=== PATIENT | female | born 1965 | race Caucasian/White ===

== ENCOUNTER 2016-11-19 08:25 | Inpatient (IN) ==
[2016-11-19] MEDS ORDERED: SODIUM CHLORIDE 0.9% 1,000 ML IV STA (08:54)
[2016-11-19] MEDS ORDERED: ONDANSETRON 4 MG/2 ML VIAL IV STA (08:54)
[2016-11-19] MEDS ORDERED: MORPHINE 2 MG/1 ML SYRINGE IV STA (08:54)
[2016-11-19] MEDS ORDERED: ONDANSETRON 4 MG/2 ML VIAL ONE (09:07)
[2016-11-19] MEDS ORDERED: MORPHINE 2 MG/1 ML SYRINGE ONE (09:08)
[2016-11-19 09:56] LABS: Apearance,Urine CLOUDY (Clear); Bacteria,Urine Few /HPF (Few); Bilirubin,Urine Negative (Negative); Blood, Urine Moderate mg/dL (Negative); Glucose,Urine (UA) Negative (Negative); Ketones,Urine Negative (Negative); Mucus,Urine Moderate /LPF (Occasional); Nitrite,Urine Negative (Negative); Protein,Urine Negative; RBC,Urine 7 /HPF (0-4); Squamous Epithelial Cell,Urine Occasional /HPF (0-10); Urine Color Yellow (Yellow); Urine Specific Gravity 1.018 (1.001-1.035); Urine Urobilinogen < 2.0 EU/DL (0.2-1.0); WBC,Urine 3 /HPF (0-6)
[2016-11-19 10:02] LABS: Basophils % 0.3 % (0.0-0.8); Eosinophils % 0.2 % (0.00-10.9); Hematocrit 36.8 VOL% (35.7-47.0); Hemoglobin 11.9 GM/DL (12.0-16.0); Immature Granulocytes % 0.3 %; Immature Granulocytes Absolute 0.03 #; Lymphocytes % 20.6 % (21.3-54.2); Mean Corpuscular HGB Conc 32.3 GM/DL (32-36); Mean Corpuscular Hemoglobin 25 PG (27-34); Mean Corpuscular Volume 77.6 FL (87-102); Mean Platelet Volume 9.4 FL (9.6-12.0); Monocytes # 0.4 10*3/uL (0.11-0.8); Monocytes % 4.3 % (1.7-12.7); Neutrophils # 7.4 10*3/uL (1.4-7.4); Neutrophils % 74.3 % (38.7-73.9); Platelet Count 278 T/CUMM (130-400); Red Blood Count 4.74 MC/CUMM (3.8-5.5); Red Cell Distribution Width 16.1 % (9.3-17.3); White Blood Count 9.9 T/CUMM (4-12)
[2016-11-19 10:38] LABS: Albumin 3.6 G/DL (3.4-5.0); Bilirubin,Total 0.4 MG/DL (0.2-1.0); Calcium 9.1 MG/DL (8.5-10.1); Osmolality,Calculated 277.4 MOS/KG (273-304); Total Protein 7.5 G/DL (6.4-8.3)
--- NOTE | 2016-11-19 10:57 | Ultrasound Report ---
US gallbladder Indication: Right upper quadrant abdominal pain. Comparison: Prior ultrasound dated July 19, 2007 no other recent cross-sectional imaging is available for comparison.. Technique: Multiple longitudinal and transverse real-time sonographic images of the right upper quadrant of the abdomen are obtained. Findings: The liver measures 16.2 cm and demonstrates normal echogenicity without focal abnormality. Multiple focal hypoechoic lesions with no significant posterior enhancement or shadowing are visualized within the liver. The largest is in the left lobe measuring 1 x 0.9 x 1.1 cm. 2 additional lesions in the right lobe inferiorly measure up to 1 cm. These are indeterminate but concerning for neoplastic lesions. Color Doppler does not demonstrate significant internal blood flow within these lesions which are otherwise indeterminate. These were not definitely visualized on the 2008 study. Multiple mobile gallstones are noted within the gallbladder lumen. There is no pericholecystic fluid. There is no wall thickening. The sonographic Schuler's sign is negative. The common duct measures 0.4 cm cm in diameter and there is no evidence of intrahepatic ductal dilation. Right kidney measures 11.5 cm craniocaudal and appears normal. The visualized portion the pancreas is unremarkable. There is no ascites. IMPRESSION: No acute sonographic abnormality right upper quadrant. Cholelithiasis with no CT evidence of acute cholecystitis. At least 3 separate new hypoechoic lesions in the liver, which are indeterminant measuring up to 1.1 cm maximum size in the left lobe. These were not definitely visualized on the 2008 ultrasound. Neoplastic versus metastatic lesions cannot be excluded. Possible benign lesion such as hemangiomas remain considerations are favored to be less likely. CT imaging of the abdomen with contrast and three-phase liver mass protocol would be recommended for further evaluation. Ultrasound images were captured and stored. PROCEDURE INTERPRETED AT [facility] DEPARTMENT OF RADIOLOGY Final Report Signed by: Demond Morataya
[2016-11-19] MEDS ORDERED: ACETAMINOPHEN 325 MG TABLET PO PRN (11:05)
[2016-11-19] MEDS ORDERED: MORPHINE 2 MG/1 ML SYRINGE IV PRN ×2 (11:05→14:06)
--- NOTE | 2016-11-19 11:43 | Emergency Department Note ---
Kimber De La Rosa Brittany, am scribing for, and in the presence of, Sera Archuleta MD 09:12. Kathe De La Rosa Leanne, MD, personally performed the services described in this documentation, ascribed by Neli Quiroga in my presence, and it is both accurate and complete . Arrival - Arrival Chief Complaint: Abdominal / Flank Pain Stated Complaint: abdominal pain,nausea pain in R shoulder back/arm ED Nursing Triage Note: c/o states having upper right quad abd.pain., states had a HIDA scan done on thrusday., states had an ultrasound of the gallbladder and was told that had gallstones., + nausea., + chills., Mode of Arrival: Ambulatory Limitations: No Limitations Source: Patient Time Seen by Provider: 11/19/16 08:45 - History of Present Illness HPI Narrative: This is a 51 y/o white female,who presents to the ED for further evaluation of her gallbladder. She states the Sx all started 6 months ago. She reports she noticed abdomen distention, nausea and vomiting when the Sx started. She has been to her PCP and Dr. Benavides, her GI specialist. She reports the last she has been told she has a 4MM gallstone in the gallbladder. She reports last week she had a HIDA Scan, per Dr. Benavides. She started to have nausea and right upper quadrant pain this morning. Pt has no other complaints/pain in the ED at this time. Pt has a PMHx of tachycardia. Pt denies a surgical Hx. Pt denies a family medical Hx. Pt denies a social Hx. Onset (ago): month(s) (Started 6 months ago) Consistency: intermittent Severity: moderate Date of Last Menstrual Period: hyst Allergies/Adverse Reactions: Allergies Allergy/AdvReac Type Severity Reaction Status Date / Time Amoxicillin [From Augmentin] Allergy HIVES Verified 11/19/16 08:34 ciprofloxacin [From Cipro] Allergy HIVES Verified 11/19/16 08:34 clavulanic acid Allergy HIVES Verified 11/19/16 08:34 [From Augmentin] codeine Allergy HIVES Verified 11/19/16 08:34 Erythromycin Base Allergy HIVES Verified 11/19/16 08:34 Hydromorphone [From Dilaudid] Allergy HIVES Verified 11/19/16 08:34 meperidine [From Demerol] Allergy HIVES Verified 11/19/16 08:34 Sulfa (Sulfonamide Allergy HIVES Verified 11/19/16 08:34 Antibiotics) Review of System - Review of System 12 point system: reviewed and no additional remarkable complaints except as stated - Review of System Gastrointestinal: Present: abdominal pain (Right Upper Quadrant Pain ), nausea, vomiting Medical,Surgical,& Family Hx - Medical History Cardio: History of: Cardiac Dysrhythmia - Social History Smoking Status: Never smoker Frequency of Alcohol Use: None Type of Drug Use: None Exam Vital Signs: Vital Signs Temperature 98.3 F 11/19/16 08:31 Pulse Rate 64 11/19/16 11:13 Respiratory Rate 16 11/19/16 11:13 Blood Pressure 131/77 11/19/16 11:13 O2 Sat by Pulse Oximetry 96 11/19/16 11:13 - General General appearance: alert, in no apparent distress - Head Head exam: Present: atraumatic, normocephalic, normal inspection - Eye Eye exam: Present: normal appearance, PERRL, EOMI. Absent: nystagmus, miosis, mydriasis - ENT ENT exam: Present: normal exam, normal oropharynx, mucous membranes moist, TM's normal bilaterally, normal external ear exam - Neck Neck exam: Present: normal inspection, full ROM, trachea midline. Absent: tenderness, meningismus, lymphadenopathy, thyromegaly - Chest Chest inspection: Present: normal inspection, symmetric chest wall rise. Absent : tenderness, rash, abscess - Respiratory Respiratory exam: Present: normal lung sounds bilaterally. Absent: prolonged expiratory phase, rales, respiratory distress, rhonchi, stridor, wheezes - Cardiovascular Cardiovascular exam: Present: regular rate, normal rhythm, normal heart sounds. Absent: murmur, rubs, gallop, clicks, JVD - Abdominal Exam Abdominal exam: Present: soft, tenderness (RUQ Tenderness, RUQ PPT), normal bowel sounds. Absent: distention, guarding, rebound, rigidity - Rectal Exam Rectal exam: Present: deferred - Extremities Exam Extremities exam: Present: normal inspection, full ROM, normal capillary refill. Absent: tenderness, pedal edema, joint swelling, calf tenderness - Back Exam Back exam: Present: normal inspection, full ROM. Absent: tenderness, muscle spasm, rashes - Neurological Exam Neurological exam: Present: alert, oriented X3, CN II-XII intact. Absent: motor sensory deficit - Psychiatric Psychiatric exam: Present: normal affect, normal mood. Absent: depressed, agitated, anxious, manic - Skin Skin exam: Present: warm, dry, intact, normal color. Absent: rash, cyanosis, diaphoresis, erythema, pallor, mottled Course Course Narrative: Pt with gallbladder work up with known stones. Doesnt see xin until November 27. Spoke iwth Dr. Su, he will admit for abx and pain control and have dr. lauren see her in am. Results - Labs CBC & BMP: 11/19/16 09:44 11/19/16 09:44 Lab Results: I have reviewed the patients labs Labs: Laboratory Tests 11/19/16 11/19/16 11/19/16 09:44 09:44 09:44 WBC 9.9 RBC 4.74 Hgb 11.9 L Hct 36.8 MCV 77.6 L MCH 25 L MCHC 32.3 RDW 16.1 Plt Count 278 MPV 9.4 L Neut % (Auto) 74.3 H Lymph % (Auto) 20.6 L [place] % (Auto) 4.3 Eos % (Auto) 0.2 Baso % (Auto) 0.3 Neut # (Auto) 7.4 Lymph # (Auto) 2.0 [place] # (Auto) 0.4 Eos # (Auto) 0.0 Baso # (Auto) 0.0 Immature Gran % 0.3 Nucleated RBC % 0.0 Immature Gran # 0.03 Nucleated RBCs # 0.00 Sodium 140 Potassium 4.0 Chloride 106 Carbon Dioxide 25 Anion Gap 13.0 BUN 9 Creatinine 0.70 GFR Calculation 108 BUN/Creatinine Ratio 12.00 Glucose 102 Calculated Osmolality 277.4 Calcium 9.1 Total Bilirubin 0.40 AST 23 ALT 27 Alkaline Phosphatase 83 Total Protein 7.5 Albumin 3.6 Globulin 3.9 H Albumin/Globulin Ratio 0.9 L Lipase 233.0 Urine Color Yellow Urine Appearance Cloudy Urine pH 5.0 Ur Specific [place] 1.018 Urine Protein Negative Urine Glucose (UA) Negative Urine Ketones Negative Urine Blood Moderate Urine Nitrate Negative Urine Bilirubin Negative Urine Urobilinogen < 2.0 H Urine Leukocytes Trace Urine RBC 7 Urine WBC 3 Ur Squamous Epith Cells Occasional Urine Bacteria Few Urine Mucus Moderate Ur Culture Indicated? Not indicated - Diagnostic Findings Procedure: X-ray: report reviewed by me (Gallbladder X-ray: No acute sonographic abnormality right upper quadrant. Cholelithiasis) Disposition Clinical Impression: Abdominal pain Case discussed with: patient Condition: Stable Additional Instructions: admit to surgery
--- NOTE | 2016-11-19 12:27 | CT Report ---
CT chest abdomen w con Technique: Axial CT imaging of the chest and abdomen was performed following administration of 100 cc of Omnipaque 350. No immediate complication from administration of contrast. Coronal and sagittal reformatted images were additionally created and submitted for review. Dose reduction: This CT exam was performed using one or more of the following dose reduction techniques: Automated exposure control, automated adjustment of the mA and/or KV according to patient size, or use of iterative reconstruction technique. Total DLP: 826 mGy*cm Clinical history: Suspicious lesions within the liver on prior ultrasound Comparison: Liver ultrasound dated 11/19/2016 Findings: CHEST: Mediastinum/vessels/lymph nodes: Heart and great vessels appear unremarkable. There is no evidence of pericardial effusion. The aorta and pulmonary vessels appear widely patent. There is no adenopathy in the chest. Lungs: The lungs are predominantly clear. There is no pneumothorax or pleural effusion. There is no focal consolidation. No suspicious pulmonary nodules or masses are identified. Central airways are patent. Minimal posterior basilar atelectasis is noted. Thyroid: Thyroid gland appears within normal limits. ABDOMEN: Liver/gallbladder: No abnormal enhancing lesions. Surprisingly, the clearly visualized lesion seen on prior ultrasound are isodense with no enhancement or washout on the supplied images. Therefore, these may represent atypical appearance of hemangiomas. There is no biliary ductal dilatation. No gallstones are visualized. Portal vein is patent. Spleen/pancreas: Within normal limits. Adrenals: Within normal limits. Kidneys: No evidence of hydronephrosis. Delayed images demonstrate symmetric excretion of contrast from both kidneys. 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 Bowel/mesentery: No free fluid/air within the abdomen. Small bowel is nondilated. No mesenteric adenopathy. Colon appears unremarkable with minimal scattered diverticulosis noted. Retroperitoneum: No adenopathy. No evidence of aortic aneurysm. BONES: No acute or suspicious appearing osseous abnormalities are identified. Impression: 1. No acute abnormality in the chest or abdomen. 2. The questioned hepatic lesions on prior ultrasound are not visualized on this study - suggesting nonenhancing isodense lesions without washout. The lesions seen on prior ultrasound may represent atypical appearance of hemangiomas. A follow-up liver ultrasound in 3-4 months months can be obtained to document stability. 3. Diverticulosis with no CT evidence of acute diverticulitis. PROCEDURE INTERPRETED AT [facility] DEPARTMENT OF RADIOLOGY Final Report Signed by: Demond Morataya
[2016-11-19] MEDS: ONDANSETRON 4 MG/2 ML VIAL IV PRN ×2 (13:45→21:44)
--- NOTE | 2016-11-19 14:02 | General Surg History&Physical ---
Assessment and Plan - Time spent with patient Time spent with patient: Greater than 30 minutes (1) Abdominal pain Status: Acute Assessment and plan: Impression: Abdominal pain with radiation to the back epigastric right upper quadrant 2. Cholelithiasis with abnormal HIDA scan Plan: Just clear liquids at this time some IV fluids and keep her n.p.o. after midnight. Consider laparoscopic cholecystectomy tomorrow. Current Visit: Yes Qualifiers: Abdominal location: epigastric Qualified Code(s): R10.13 - Epigastric pain History of Present Illness Chief complaint: Abdominal pain right upper quadrant with radiation to the back History of present illness: Ms. Hines is a 51 year old female white who has been having some abdominal pain with nausea for the last 6 months. Over the last 6 weeks though he did begin to get a little bit worse that she begin to seek some help. She had an ultrasound that showed that she had gallstones present and then was planned to just do some observation but she continued to have symptoms. Unable to really relate this to certain foods but she was having recurrent attacks with nausea and discomfort. She was referred over to Dr. Benavides who ended up doing a HIDA scan that was positive with a 0% ejection fraction. The ejection fraction part of the HIDA scan was reproducing some of her symptoms at the time. At this point she had another episode yesterday and got pretty bad with more discomfort into her back and into her shoulder area with the right upper quadrant discomfort. Came back to the emergency room today liver function studies are normal and on review of her ultrasound which showed some stones and a CT scan of the abdomen and pelvis it was pretty much negative at this time. There was a little concerned on the ultrasound about some changes in the liver but these were negative on the CT scan at this time. Because her symptoms seem to be getting worse and seem to be consistent with gallbladder disease certainly planning a cholecystectomy would be important. Patient was scheduled to see Dr. Encinas so will let him know about her in the morning see what he wants to do at this time. Home Medications Medication Instructions Recorded Confirmed Type Aspirin EC Tab 325 mg PO BEDTIME 11/19/16 11/19/16 History Betahistine HCl 8 gm PO 0600,1400,2200 11/19/16 11/19/16 History Estrogens(Conj) Tab [Premarin Tab] 0.625 mg PO BEDTIME 11/19/16 11/19/16 History Nebivolol HCl [Bystolic] 2.5 mg PO BEDTIME 11/19/16 11/19/16 History Omeprazole 40 mg PO QAM 11/19/16 11/19/16 History Allergies Allergy/AdvReac Type Severity Reaction Status Date / Time Amoxicillin [From Augmentin] Allergy HIVES Verified 11/19/16 08:34 ciprofloxacin [From Cipro] Allergy HIVES Verified 11/19/16 08:34 clavulanic acid Allergy HIVES Verified 11/19/16 08:34 [From Augmentin] codeine Allergy HIVES Verified 11/19/16 08:34 Erythromycin Base Allergy HIVES Verified 11/19/16 08:34 Hydromorphone [From Dilaudid] Allergy HIVES Verified 11/19/16 08:34 meperidine [From Demerol] Allergy HIVES Verified 11/19/16 08:34 Sulfa (Sulfonamide Allergy HIVES Verified 11/19/16 08:34 Antibiotics) Medical,Surgical,& Family Hx - Medical History Cardio: History of: Cardiac Dysrhythmia - Social History Smoking Status: Never smoker Frequency of Alcohol Use: None Type of Drug Use: None Exam - Constitutional Vitals: Period Temp Pulse Resp BP Sys/[place] Pulse Ox Last 24 Hr 98.0 F-98.3 F 61-88 16-18 114-168/62-103 96-100 General appearance: mild distress - Head Head exam: Present: normal inspection - Eye Eye exam: Present: EOMI - ENT ENT exam: Present: normal exam - Neck Neck exam: Present: normal inspection - Respiratory Respiratory exam: Present: clear to auscultation bilaterally, rales - Cardiovascular Cardiovascular exam: Present: RRR - GI/Abdominal GI/Abdominal exam: Present: hypoactive bowel sounds, tenderness (Mild tenderness with minimal guarding right upper quadrant), soft. Absent: distended - Extremities Exam Extremities exam: Present: normal inspection - Neurological Exam Neurological exam: Present: alert, oriented X3, CN II-XII intact - Skin Skin exam: Present: normal color, warm, dry 12 point system: reviewed and no additional remarkable complaints except as stated Results - Labs CBC & BMP: 11/19/16 09:44 11/19/16 09:44 Lab Results: I have reviewed the past 24 hour labs - Diagnostic Findings Procedure: CT Abdomen and Pelvis: report reviewed by me (Essentially negative even for the liver but no other process noted in the pelvis), Ultrasound: report reviewed by me (Positive for stones in the gallbladder), X-ray: report reviewed by me (HIDA scan with a 0% ejection fraction)
[2016-11-19] MEDS ORDERED: BISACODYL 5 MG TABLET PO PRN (14:06)
[2016-11-19] MEDS ORDERED: ALUMINUM/MAGNES/SIMETH MAX STR 30 ML UDCUP PO PRN (14:06)
--- NOTE | 2016-11-19 14:41 | EKG Report ---
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
--- NOTE | 2016-11-19 16:10 | XRay Report ---
Exam: XR chest 2V Indication: Abdominal pain, possible gallbladder surgery, preop Comparison study: None Findings: The heart, mediastinum, and bony structures are within normal limits. There is no focal consolidation, pneumothorax or pleural effusion identified. Impression: No acute cardiopulmonary process. PROCEDURE INTERPRETED AT [facility] DEPARTMENT OF RADIOLOGY Final Report Signed by: Demond Morataya
[2016-11-19] MEDS: DEXTROSE 5% NACL 0.45% 1,000 ML IV SCH ×2 (16:41→21:17)
[2016-11-19] MEDS: DOCUSATE SODIUM 100 MG CAPSULE PO SCH (21:16)
[2016-11-19] MEDS: NEBIVOLOL 5 MG TABLET PO SCH (21:16)
[2016-11-19] MEDS ORDERED: BETAHISTINE HCL PO SCH (22:00)
[2016-11-20] MEDS: DEXTROSE 5% NACL 0.45% 1,000 ML IV SCH ×3 (05:06→19:40)
[2016-11-20 06:11] LABS: Basophils % 0.6 % (0.0-0.8); Eosinophils # 0.2 10*3/uL (0.0-0.87); Eosinophils % 3.1 % (0.00-10.9); Hematocrit 32.8 VOL% (35.7-47.0); Hemoglobin 10.2 GM/DL (12.0-16.0); Immature Granulocytes % 0.3 %; Immature Granulocytes Absolute 0.02 #; Lymphocytes # 3.5 10*3/uL (1.4-4.0); Mean Corpuscular HGB Conc 31.1 GM/DL (32-36); Mean Corpuscular Hemoglobin 25 PG (27-34); Mean Corpuscular Volume 79.6 FL (87-102); Mean Platelet Volume 9.6 FL (9.6-12.0); Monocytes # 0.5 10*3/uL (0.11-0.8); Neutrophils # 2.6 10*3/uL (1.4-7.4); Platelet Count 223 T/CUMM (130-400); Red Blood Count 4.12 MC/CUMM (3.8-5.5); Red Cell Distribution Width 16.2 % (9.3-17.3); White Blood Count 6.9 T/CUMM (4-12)
[2016-11-20 06:41] LABS: Albumin 2.8 G/DL (3.4-5.0); Bilirubin,Total 0.4 MG/DL (0.2-1.0); Calcium 8.1 MG/DL (8.5-10.1); Osmolality,Calculated 281.8 MOS/KG (273-304); Potassium 4.3 MMOL/L (3.5-5.1)
[2016-11-20 06:49] LABS: Atypical Lymphocytes 2+; Eosinophils 5 % (0-10); Hypochromasia Slight; Lymphocytes 44 % (20-55); Platelet Estimate Adequate; Segmented Neutrophils 48 % (50-85); Total Cells Counted 100
--- NOTE | 2016-11-20 07:30 | General Surgery Progress Note ---
Assessment and Plan - Time spent with patient Time spent with patient: Less than 30 minutes (1) Acute cholecystitis due to biliary calculus Status: Acute Assessment and plan: She continues to have pain consistent with acute cholecystitis. She has had multiple episodes in the past and was actually scheduled to see me in the clinic next week. I discussed laparoscopic cholecystectomy in detail along with the risks and alternatives. We discussed the risk of conversion to open procedure, injury to bile duct, bile leaks, injury to liver or bowel, etc. she understands and wishes to proceed Current Visit: Yes Subjective Patient reports: Present: feels better, still having pain. Absent: nausea, vomiting, fever Exam - Constitutional Vitals: Period Temp Pulse Resp BP Sys/[place] Pulse Ox Last 24 Hr 9.7 F-98.3 F 53-88 16-18 99-168/58-103 96-100 General appearance: no acute distress - Head Head exam: Present: normocephalic - Eye Eye exam: Absent: scleral icterus - Respiratory Respiratory exam: Absent: accessory muscle use - GI/Abdominal GI/Abdominal exam: Present: tenderness, soft. Absent: distended, mass, Schuler' s sign, rebound Results - Labs CBC & BMP: 11/20/16 05:28 11/20/16 05:28 Lab Results: I have reviewed the past 24 hour labs - Diagnostic Findings Procedure: CT Abdomen and Pelvis: report reviewed by me, Ultrasound: report reviewed by me Quality Measures - VTE Contraindication to Pharmacological VTE Prophylaxis: High Risk of Bleeding
[2016-11-20] MEDS: DOCUSATE SODIUM 100 MG CAPSULE PO SCH ×2 (08:01→20:20)
[2016-11-20] MEDS: PANTOPRAZOLE 40 MG TABLET PO SCH (08:01)
[2016-11-20] MEDS ORDERED: SCOPOLAMINE 1.5 MG PATCH TRANSDERM ONE ×2 (12:49→13:07)
[2016-11-20] MEDS ORDERED: DESFLURANE 1 UNIT/15 MINUTE INH ONE ×2 (13:25→15:16)
[2016-11-20] MEDS ORDERED: BUPIVACAINE MPF 0.25% /EPI 30 ML VIAL ONE (13:37)
[2016-11-20] MEDS ORDERED: TISSUE ADHESIVE 1 EACH APPLICATOR TOP ONE (14:47)
--- NOTE | 2016-11-20 14:52 | Operative Note ---
Date of procedure: 11/20/16 Pre-op diagnosis: Cholelithiasis with acute cholecystitis Post-op diagnosis: same Procedure: Laparoscopic cholecystectomy Findings and technique: After informed consent was obtained the patient was brought the operating room and placed in supine position. After successful induction of general anesthesia the patient's abdomen was prepped and draped in usual sterile fashion. Local anesthesia was infiltrated the umbilicus and a small incision made through her old infraumbilical scar and an open technique used in the peritoneal cavity under direct vision. The camera was inserted and pneumoperitoneum was established. The right upper quadrant was visualized with patient was noted to have a thickened diseased appearing gallbladder with adhesions between the omentum and the body of the gallbladder. Ports were placed in the upper abdomen under camera vision in the fundus the gallbladder grasped and retracted upwards. These adhesions were sharply divided exposing the neck of the gallbladder. Peritoneum over the neck of the gallbladder was incised exposing the tapering neck of the gallbladder as it formed the proximal cystic duct and cystic artery as it branched over the medial neck of the gallbladder. The critical view of safety was achieved prior to incising any structures. I used the pinpoint camera system and the patient had had indocyanine green injected preoperatively. This showed the course of the common bile duct in the hepatoduodenal ligament this patient who appeared to have normal anatomy and normal liver function test preoperatively. The cystic duct was doubly clipped and divided close to the neck of the gallbladder and the cystic artery doubly clipped and divided right on the gallbladder neck as well. Sharp dissection was used to remove the gallbladder from the liver bed and the gallbladder removed through the umbilical port site. The liver bed was irrigated inspected and after being observed for about 5 minutes no bleeding or bile leakage was noted. The ports removed and no bleeding noted from the port sites. The gas was evacuated from the abdomen and the fascial defect of the umbilicus closed with running 0 Monocryl suture. The skin incisions were closed with 4-0 Vicryl subcuticular suture and tissue adhesive. She appeared to tolerate the procedure well. Anesthesia: JOANNAA, local Surgeon / Physician: Francisco Encinas III. Estimated blood loss: minimal Specimens: other (Gallbladder) Condition: stable Disposition: PACU Results - Labs CBC & BMP: 11/20/16 05:28 11/20/16 05:28 Discharge Plan - Discharge Medications No Action Omeprazole 40 mg PO QAM Estrogens(Conj) Tab [Premarin Tab] 0.625 mg PO BEDTIME Aspirin EC Tab 325 mg PO BEDTIME Betahistine HCl 8 gm PO 0600,1400,2200 Nebivolol HCl [Bystolic] 2.5 mg PO BEDTIME - Follow Up or Referral Follow Up: Francisco Encinas III., MD [Physician] - - Forms/Instructions Instructions: Laparoscopic Cholecystectomy (DC)
--- NOTE | 2016-11-20 15:11 | Anesthesia Post-Op ---
Anesthesia Post OP - Post Ansesthetic Evaluation Patient seen in post op: Yes Resp: within normal limits CV: within normal limits Mental: within normal limits Temp: within normal limits [id number]: within normal limits Nausea and Vomiting: within normal limits Pain: within normal limits
[2016-11-20] MEDS ORDERED: ACETAMINOPHEN 1,000 MG/100 ML VIAL IV ONE (15:16)
[2016-11-20] MEDS ORDERED: MIDAZOLAM 2 MG/2 ML VIAL ONE (15:16)
[2016-11-20] MEDS ORDERED: fentaNYL 100 MCG/2 ML VIAL ONE (15:16)
[2016-11-20] MEDS ORDERED: MORPHINE 10 MG/1 ML VIAL ONE (15:31)
[2016-11-20] MEDS: ONDANSETRON 4 MG/2 ML VIAL IV PRN (18:42)
[2016-11-20] MEDS: NEBIVOLOL 5 MG TABLET PO SCH (20:21)
[2016-11-20] MEDS: [UNRECOGNIZED DRUG - OTHER] PO SCH (22:22)
[2016-11-21] MEDS: DEXTROSE 5% NACL 0.45% 1,000 ML IV SCH ×2 (02:10→03:22)
[2016-11-21 06:02] LABS: Basophils % 0.2 % (0.0-0.8); Hematocrit 34.8 VOL% (35.7-47.0); Hemoglobin 10.9 GM/DL (12.0-16.0); Immature Granulocytes % 0.4 %; Immature Granulocytes Absolute 0.04 #; Lymphocytes # 1.4 10*3/uL (1.4-4.0); Lymphocytes % 13.7 % (21.3-54.2); Mean Corpuscular HGB Conc 31.3 GM/DL (32-36); Mean Corpuscular Hemoglobin 25 PG (27-34); Mean Corpuscular Volume 78.9 FL (87-102); Mean Platelet Volume 9.8 FL (9.6-12.0); Monocytes # 0.5 10*3/uL (0.11-0.8); Monocytes % 5.2 % (1.7-12.7); Neutrophils % 80.5 % (38.7-73.9); Platelet Count 260 T/CUMM (130-400); Red Blood Count 4.41 MC/CUMM (3.8-5.5); Red Cell Distribution Width 16.1 % (9.3-17.3)
[2016-11-21] MEDS: [UNRECOGNIZED DRUG - OTHER] PO SCH (06:27)
[2016-11-21 06:30] LABS: Calcium 8.8 MG/DL (8.5-10.1); Osmolality,Calculated 280.1 MOS/KG (273-304); Potassium 4.2 MMOL/L (3.5-5.1)
--- NOTE | 2016-11-21 07:13 | Event Note ---
She feels much better. Her abdomen is benign and she is afebrile with stable vital signs. Think she should be fine for discharge today with plans to keep her appointment that is already scheduled with me for next week.
[2016-11-21] MEDS: DOCUSATE SODIUM 100 MG CAPSULE PO SCH (08:46)
[2016-11-21] MEDS: PANTOPRAZOLE 40 MG TABLET PO SCH (08:46)
[2016-11-21] MEDS: ONDANSETRON 4 MG/2 ML VIAL IV PRN (08:52)
--- NOTE | 2016-11-21 11:26 | Discharge Summary ---
Hospital Course - Hospital Course Hospital Course: Patient is a 51-year-old female who underwent subsequent cholecystectomy for acute cholecystitis with cholelithiasis. Postoperatively, she regressed well and tolerated oral intake with adequate pain management without difficulty. She was voiding without difficulty and passing flatus upon discharge. She was discharged home in good condition with appropriate analgesics and scheduled follow-up with Dr. Encinas. Gallbladder pathology pending. Diagnosis - Discharge Diagnosis (1) Acute cholecystitis due to biliary calculus Status: Acute (2) Acute renal injury Status: Resolved (3) Diverticulosis Status: Chronic (4) Liver lesion Status: Acute Specialty Discharge - Follow Up or Referrals Follow up with: Francisco Encinas III., MD [Physician] - 11/27/16 9:45 am (keep previously schecduled appointment) Discharge Plan - Discharge Data Disposition: Disch To Home/Self Care Condition at Discharge: Stable Discharge Diet: advance to your usual diet Activity: no lifting (> 10 lb) Driving: other (No driving while taking narcotics) Contact your physician if you experience:: fever over 101, Difficulty voiding, Redness or swelling, Nausea/Vomiting, Shortness of breath, Bleeding, pain uncontrolled by pain medications Wound / Dressing Care Instructions: Keep surgical incisions clean and dry. - Discharge Medications New Ondansetron Tab [Zofran Tab] 4 mg PO Q6H PRN #20 tablet PRN Reason: Nausea HYDROcodone/ACETAMIN 7.5-325 [[place] 7.5-325] 1 tablet PO Q4H PRN #30 tablet PRN Reason: Pain Moderate To Severe (4-10) Continue Omeprazole 40 mg PO QAM Estrogens(Conj) Tab [Premarin Tab] 0.625 mg PO BEDTIME Aspirin EC Tab 325 mg PO BEDTIME Nebivolol HCl [Bystolic] 2.5 mg PO BEDTIME Betahistine Dihydrochloride 8 mg PO 0600,1400,2200 - Follow Up or Referral Follow Up: Francisco Encinas III., MD [Physician] - 11/27/16 9:45 am (keep previously schecduled appointment) - Forms/Instructions Instructions: Laparoscopic Cholecystectomy (DC) Additional Discharge Instructions: Repeat liver US 3 mo re: liver lesions - suspect hemangiomas Exam - Constitutional Vitals: Period Temp Pulse Resp BP Sys/[place] Pulse Ox Last 24 Hr 97.1 F-98.7 F 50-98 14-20 97-163/46-83 93-100 General appearance: no acute distress - Head Head exam: Present: normal inspection, normocephalic - Eye Eye exam: Absent: conjunctival injection, scleral icterus - Respiratory Respiratory exam: Present: clear to auscultation bilaterally - Cardiovascular Cardiovascular exam: Present: regular rate and rhythm - GI/Abdominal GI/Abdominal exam: Present: normal bowel sounds, tenderness (appropriate p/o tenderness. Dressings c/d/i. ), soft. Absent: distended - Extremities Exam Extremities exam: Absent: calf tenderness, edema - Neurological Exam Neurological exam: Present: alert, oriented X3 - Psychiatric Psychiatric exam: Present: normal affect, normal mood - Skin Skin exam: Present: normal color, warm Discharge Results Procedures and tests throughout hospitalization: 1. Laparoscopic cholecystectomy\ 2. Gallbladder pathology pending Labs on day of discharge: Labs from last 24 hours 11/21/16 11/21/16 05:27 05:27 WBC 10.0 D RBC 4.41 Hgb 10.9 L Hct 34.8 L MCV 78.9 L MCH 25 L MCHC 31.3 L RDW 16.1 Plt Count 260 MPV 9.8 Neut % (Auto) 80.5 H Lymph % (Auto) 13.7 L [place] % (Auto) 5.2 Eos % (Auto) 0.0 Baso % (Auto) 0.2 Neut # (Auto) 8.0 H Lymph # (Auto) 1.4 [place] # (Auto) 0.5 Eos # (Auto) 0.0 Baso # (Auto) 0.0 Immature Gran % 0.4 Nucleated RBC % 0.0 Immature Gran # 0.04 Nucleated RBCs # 0.00 Sodium 142 Potassium 4.2 Chloride 107 Carbon Dioxide 25 Anion Gap 14.2 BUN 4 L Creatinine 1.00 GFR Calculation 70 BUN/Creatinine Ratio 4.00 L Glucose 121 H Calculated Osmolality 280.1 Calcium 8.8 - Imaging and Cardiology Procedure: Chest x-ray: image reviewed by me, report reviewed by me, CT Abdomen and Pelvis: image reviewed by me, report reviewed by me (liver lesion - likely hemangioma - repeat US in 3 mo), Ultrasound: image reviewed by me, report reviewed by me (gallbladder) DS: Provider Date of admission: 11/19/16 11:05 Primary care physician: Qing Deal, Attending physician on admission: Bill Huang, III., Consults: None Discharging clinician: Sandi Ng PA-C
[2016-11-21 11:49] VITALS: BP 93/48
--- NOTE | 2016-11-21 13:31 | Pathology Report from [facility] ---
[facility] – [place] ACCESSION # : [id number] PATIENT NAME : Keyon Hines ORDERING DR : JUDY GORMAN III, MD CLINICAL HX: Cholecystitis POST-OP DX: Same SPECIMEN INFO: Gallbladder GROSS DESCRIPTION: The specimen is received in formalin labeled with the patients name and consists of an intact pear-shaped gallbladder measuring 7.2 cm x up to 0.1 cm. The serosa is smooth, blue-woodall. The wall averages 0.2 cm in thickness. The mucosal surface is granular, gold-patton with two polypoid yellow lesions present. The lumen contains viscous gold-brown bile. No stones identified. [employer] sections submitted in one cassette. DIAGNOSIS FOR KEYON HINES: GALLBLADDER, CHOLECYSTECTOMY: Chronic cholecystitis. Cholesterolosis with cholesterol polyp formation. COLLECTED DATE: 11/20/2016 [facility] – [place], [place] REPORT DATE: 11/21/2016 ELECTRONICALLY SIGNED BY: Yeyo Alvarez M.D. 11/21/2016 - 10:54:55 MTDD
[2016-11-21] MEDS ORDERED: GLYCOPYRROLATE 0.4 MG/2 ML VIAL ONE (13:54)
[2016-11-21] MEDS ORDERED: PROPOFOL 200 MG/20 ML VIAL IV ONE (13:54)
[2016-11-21] MEDS ORDERED: DEXAMETHASONE 10 MG/1 ML VIAL ONE (13:54)
[2016-11-21] MEDS ORDERED: LIDOCAINE 1% 5 ML VIAL ONE (13:54)
[2016-11-21] MEDS ORDERED: ROCURONIUM 100 MG/10 ML VIAL IV ONE (13:54)
[2016-11-21] MEDS ORDERED: NEOSTIGMINE 10 MG/10 ML VIAL ONE (13:54)
[2016-11-21] MEDS ORDERED: KETOROLAC 30 MG/1 ML VIAL ONE (13:54)
[2016-11-21] MEDS ORDERED: ONDANSETRON 4 MG/2 ML VIAL ONE (13:54)
== END 2016-11-21 14:00 | disposition home or self-care (01) | DRG 418 ==
LOC: N.ED 08:25 → N.EDINP 11:05 → N.3E 11:24
PROVIDERS: ADMIT Surgery; ATTEND Surgery
PROC: LAPCHOL (2016-11-20 12:35)

== ENCOUNTER 2018-01-13 14:07 | Observation (INO) ==
[2018-01-13] MEDS ORDERED: SODIUM CHLORIDE 0.9% 1,000 ML IV STA (14:39)
[2018-01-13] MEDS ORDERED: ASPIRIN 325 MG TABLET PO STA (14:39)
[2018-01-13 14:53] LABS: Basophils # 0.1 10*3/uL (0.0-0.2); Basophils % 0.6 % (0.0-0.8); Eosinophils # 0.1 10*3/uL (0.0-0.87); Eosinophils % 0.8 % (0.00-10.9); Hematocrit 37.2 VOL% (35.7-47.0); Hemoglobin 11.6 GM/DL (12.0-16.0); Immature Granulocytes % 0.2 %; Immature Granulocytes Absolute 0.02 #; Lymphocytes # 2.7 10*3/uL (1.4-4.0); Lymphocytes % 29.7 % (21.3-54.2); Mean Corpuscular HGB Conc 31.2 GM/DL (32-36); Mean Corpuscular Hemoglobin 24 PG (27-34); Mean Corpuscular Volume 78.3 FL (87-102); Mean Platelet Volume 9.3 FL (9.6-12.0); Monocytes # 0.6 10*3/uL (0.11-0.8); Monocytes % 6.1 % (1.7-12.7); Neutrophils # 5.7 10*3/uL (1.4-7.4); Neutrophils % 62.6 % (38.7-73.9); Platelet Count 342 T/CUMM (130-400); Red Blood Count 4.75 MC/CUMM (3.8-5.5); Red Cell Distribution Width 15.9 % (9.3-17.3); White Blood Count 9.1 T/CUMM (4-12)
[2018-01-13 15:03] LABS: INR 0.9
[2018-01-13 15:13] LABS: Alanine Aminotransferase 27 U/L (13-56); Albumin 3.4 G/DL (3.4-5.0); Alkaline Phosphatase 86 U/L (45-117); Aspartate Amino Transferase 23 U/L (0-37); Bilirubin,Total < 0.39 MG/DL (0.2-1.0); Blood Urea Nitrogen 9 MG/DL (7-18); Calcium 9.3 MG/DL (8.5-10.1); Glucose 111 MG/DL (74-106); Osmolality,Calculated 278.4 MOS/KG (273-304); Potassium 3.4 MMOL/L (3.5-5.1); Sodium 140 MMOL/L (136-145)
[2018-01-13] MEDS ORDERED: ONDANSETRON 4 MG/2 ML VIAL IV PRN (16:24)
[2018-01-13] MEDS ORDERED: ACETAMINOPHEN 325 MG TABLET PO PRN (16:24)
[2018-01-13 18:10] LABS: Apearance,Urine CLEAR (Clear); Bacteria,Urine Occasional /HPF (Few); Bilirubin,Urine Negative (Negative); Blood, Urine Small mg/dL (Negative); Glucose,Urine (UA) Negative (Negative); Ketones,Urine 5 mg/dL (Negative); Mucus,Urine Occasional /LPF (Occasional); Nitrite,Urine Negative (Negative); Protein,Urine Negative; RBC,Urine 1 /HPF (0-4); Squamous Epithelial Cell,Urine Occasional /HPF (0-10); Urine Color Straw (Yellow); Urine Specific Gravity 1.006 (1.001-1.035); Urine Urobilinogen < 2.0 EU/DL (0.2-1.0); WBC,Urine <1 /HPF (0-6)
[2018-01-13] MEDS: POTASSIUM CHLORIDE 20 MEQ TABLET PO PRN ×3 (19:20→23:15)
[2018-01-13] MEDS: ENOXAPARIN 40 MG/0.4 ML SYRINGE SUBCUT SCH (21:09)
[2018-01-13] MEDS: NEBIVOLOL 5 MG TABLET PO SCH (21:09)
[2018-01-14 04:38] LABS: Basophils # 0.1 10*3/uL (0.0-0.2); Basophils % 0.6 % (0.0-0.8); Eosinophils # 0.1 10*3/uL (0.0-0.87); Eosinophils % 1.4 % (0.00-10.9); Hemoglobin 10.6 GM/DL (12.0-16.0); Immature Granulocytes % 0.2 %; Immature Granulocytes Absolute 0.02 #; Lymphocytes # 3.8 10*3/uL (1.4-4.0); Lymphocytes % 41.5 % (21.3-54.2); Mean Corpuscular HGB Conc 31.2 GM/DL (32-36); Mean Corpuscular Hemoglobin 24 PG (27-34); Mean Corpuscular Volume 77.4 FL (87-102); Mean Platelet Volume 9.4 FL (9.6-12.0); Monocytes # 0.6 10*3/uL (0.11-0.8); Monocytes % 6.3 % (1.7-12.7); Neutrophils # 4.6 10*3/uL (1.4-7.4); Platelet Count 284 T/CUMM (130-400); Red Blood Count 4.39 MC/CUMM (3.8-5.5); Red Cell Distribution Width 16.1 % (9.3-17.3); White Blood Count 9.1 T/CUMM (4-12)
[2018-01-14 05:22] LABS: Calcium 8.4 MG/DL (8.5-10.1); Potassium 4.6 MMOL/L (3.5-5.1); Risk Ratio 2.95; Thyroid Stimulating Hormone 2.72 uIU/ml (0.358-3.74); VLDL CHOLESTEROL 19.8 MG/DL
[2018-01-14] MEDS: ASPIRIN EC 81 MG TABLET PO SCH (08:28)
[2018-01-14] MEDS: PANTOPRAZOLE 40 MG TABLET PO SCH (08:28)
[2018-01-14] MEDS ORDERED: ESTRADIOL 0.5 MG VAG SCH (09:00)
[2018-01-14] MEDS ORDERED: ALPRAZolam 0.5 MG TABLET PO ONE (09:49)
[2018-01-14 17:32] LABS: Apearance,Urine CLOUDY (Clear); Bacteria,Urine Occasional /HPF (Few); Bilirubin,Urine Negative (Negative); Blood, Urine Small mg/dL (Negative); Glucose,Urine (UA) Negative (Negative); Ketones,Urine 5 mg/dL (Negative); Mucus,Urine Occasional /LPF (Occasional); Nitrite,Urine Negative (Negative); Protein,Urine Negative; RBC,Urine 1 /HPF (0-4); Squamous Epithelial Cell,Urine Few /HPF (0-10); Urine Color Yellow (Yellow); Urine Specific Gravity 1.009 (1.001-1.035); Urine Urobilinogen < 2.0 EU/DL (0.2-1.0); WBC,Urine <1 /HPF (0-6)
[2018-01-14] MEDS: ENOXAPARIN 40 MG/0.4 ML SYRINGE SUBCUT SCH (20:41)
[2018-01-14] MEDS: NEBIVOLOL 5 MG TABLET PO SCH (20:42)
[2018-01-14] MEDS ORDERED: ROSUVASTATIN 10 MG TABLET PO SCH (21:00)
[2018-01-15 02:57] LABS: Basophils # 0.1 10*3/uL (0.0-0.2); Basophils % 0.5 % (0.0-0.8); Eosinophils # 0.1 10*3/uL (0.0-0.87); Eosinophils % 1.3 % (0.00-10.9); Hematocrit 33.7 VOL% (35.7-47.0); Hemoglobin 10.9 GM/DL (12.0-16.0); Immature Granulocytes % 0.2 %; Immature Granulocytes Absolute 0.02 #; Lymphocytes % 44.1 % (21.3-54.2); Mean Corpuscular HGB Conc 32.3 GM/DL (32-36); Mean Corpuscular Hemoglobin 25 PG (27-34); Mean Corpuscular Volume 76.1 FL (87-102); Mean Platelet Volume 9.3 FL (9.6-12.0); Monocytes # 0.5 10*3/uL (0.11-0.8); Monocytes % 5.6 % (1.7-12.7); Neutrophils # 4.4 10*3/uL (1.4-7.4); Neutrophils % 48.3 % (38.7-73.9); Platelet Count 290 T/CUMM (130-400); Red Blood Count 4.43 MC/CUMM (3.8-5.5); White Blood Count 9.1 T/CUMM (4-12)
[2018-01-15 03:23] LABS: Calcium 8.3 MG/DL (8.5-10.1); Osmolality,Calculated 279.3 MOS/KG (273-304)
[2018-01-15 07:43] LABS: % Iron Saturation 7.6 % (18-50); Ferritin 7.1 ng/ml (8-252)
[2018-01-15] MEDS: ASPIRIN EC 81 MG TABLET PO SCH (08:28)
[2018-01-15] MEDS: PANTOPRAZOLE 40 MG TABLET PO SCH (08:28)
[2018-01-15 08:30] VITALS: BP 102/56
[2018-01-15 09:12] LABS: Folate 13.6 NG/ML (5.4-24.0)
[2018-01-17] MEDS ORDERED: ERGOCALCIFEROL 50,000 UNIT CAPSULE PO SCH (09:00)
== END 2018-01-15 10:17 | disposition home or self-care (01) ==
LOC: N.ED 14:07 → N.EDINP 14:07 → N.TELES 16:38
PROVIDERS: ADMIT Internal Medicine; ATTEND Internal Medicine